=== PATIENT | male | born 1985 | race Caucasian/White ===

== ENCOUNTER 2016-11-07 15:55 | Emergency (ER) | payer OTHER ==
[~2016-11-07] VITALS: Ht 167.6 cm; Wt 61.8 kg
[~2016-11-07 15:55] MED LIST: ARIP2 PO; FLUO-191 PO
[2016-11-07] MEDS ORDERED: BACITRACIN 0.9 GM PACKET OINTMENT TP ONE (17:00)
[2016-11-07] MEDS ORDERED: CEFTAROLINE 600 MG/D5W 250 ML IV ONE (17:00)
[2016-11-07 18:09] VITALS: BP 137/88
== END 2016-11-07 18:13 | disposition home or self-care (01) ==
LOC: EMS 15:56
DX: L03.116 Cellulitis of left lower limb (principal); F12.90 Cannabis use, unspecified, uncomplicated; F17.210 Nicotine dependence, cigarettes, uncomplicated
CPT/HCPCS: 96365; 99284; J0712

== ENCOUNTER 2018-09-14 15:10 | Emergency (ER) | payer OTHER ==
[~2018-09-14] VITALS: Ht 185.4 cm; Wt 91.8 kg
[2018-09-14 15:23] VITALS: BP 134/86
[2018-09-14] MEDS ORDERED: LITH300C3 PO (15:26)
== END 2018-09-14 20:00 | disposition left against medical advice (07) ==
LOC: EMS 15:10
DX: M54.5 Low back pain (principal); Z53.21 Procedure and treatment not carried out due to patient leaving prior to being seen by health care provider

== ENCOUNTER 2019-02-03 16:11 | Emergency (ER) | payer OTHER ==
[~2019-02-03] VITALS: Ht 185.4 cm; Wt 92.3 kg
[~2019-02-03 16:11] MED LIST changes: +LITH300C3 PO
[2019-02-03] MEDS ORDERED: HALOPERIDOL LACTATE 5 MG/ML VIAL ONE ×2 (16:34→17:12)
[2019-02-03] MEDS ORDERED: LORazepam 2 MG/ML VIAL ONE (16:34)
[2019-02-03] MEDS ORDERED: DiphenhydrAMINE HCL 50 MG/ML VIAL ONE ×2 (16:34→17:12)
[2019-02-03 16:53] LABS: EOSINOPHILS % (AUTO) 0.4 % (1.0-6.0); HEMATOCRIT 43.6 % (41-53); HEMOGLOBIN 14.3 g/dL (13.5-17.5); LYMPHOCYTES # (AUTO) 1.9 K/uL (1.0-4.8); LYMPHOCYTES % (AUTO) 17.3 % (22.0-44.0); MEAN CORPUSCULAR HEMOGLOBIN 30.3 pg (26.0-34.0); MEAN CORPUSCULAR HGB CONC 32.9 G/dL (31.0-37.0); MEAN CORPUSCULAR VOLUME 92 fL (80-100); MONOCYTES # (AUTO) 1.5 K/uL (0.1-1.0); MONOCYTES % (AUTO) 13.4 % (2.0-9.0); NEUTROPHILS # (AUTO) 7.6 K/uL (1.8-7.7); NEUTROPHILS % (AUTO) 67.9 % (40.0-70.0); PLATELET COUNT (AUTO) 339 K/uL (150-450); RED BLOOD CELL COUNT(AUTO) 4.73 MIL/uL (4.50-5.90); RED CELL DISTRIBUTION WIDTH 13.5 % (11.5-14.5)
[2019-02-03] MEDS ORDERED: LORazepam 2 MG/ML VIAL IM ONE (17:00)
[2019-02-03 17:02] LABS: CALCIUM, TOTAL 8.9 mg/dL (8.8-10.5); CREATININE 1.55 mg/dL (0.60-1.30); POTASSIUM 3.8 mmol/L (3.5-5.1)
[2019-02-03 17:08] LABS: ALBUMIN 3.7 g/dL (3.4-5.0); BILIRUBIN,TOTAL 1.1 mg/dL (0.1-1.0); TOTAL PROTEIN, SERUM 7.8 g/dL (6.4-8.2)
[2019-02-03] MEDS ORDERED: DiphenhydrAMINE HCL 50 MG/ML VIAL IVP ONE (17:15)
[2019-02-03] MEDS ORDERED: HALOPERIDOL LACTATE 5 MG/ML VIAL IM ONE (17:15)
[2019-02-03 17:25] LABS: AMPHET/METH SCREEN,URINE POSITIVE (NEGATIVE); BARBITURATE SCREEN, URINE NEGATIVE (NEGATIVE); BENZODIAZEPINES SCREEN,URINE NEGATIVE (NEGATIVE); CANNABINOID SCREEN,URINE NEGATIVE (NEGATIVE); COCAINE SCREEN,URINE NEGATIVE (NEGATIVE); METHADONE SCREEN, URINE NEGATIVE (NEGATIVE); OPIATE SCREEN,URINE NEGATIVE (NEGATIVE)
[2019-02-03 17:26] LABS: PHENCYCLIDINE SCREEN,URINE NEGATIVE (NEGATIVE)
[2019-02-03] MEDS ORDERED: PERTUSS(ACELL),DIPH,TET VAC/PF 0.5 ML VIAL IM ONE (21:45)
[2019-02-03 22:17] VITALS: BP 136/77
== END 2019-02-03 22:33 | disposition home or self-care (01) ==
LOC: EMS 16:12
DX: S00.212A Abrasion of left eyelid and periocular area, initial encounter (principal); F29 Unspecified psychosis not due to a substance or known physiological condition; F22 Delusional disorders; F19.10 Other psychoactive substance abuse, uncomplicated; F31.9 Bipolar disorder, unspecified; F17.210 Nicotine dependence, cigarettes, uncomplicated; F12.90 Cannabis use, unspecified, uncomplicated; Y04.2XXA Assault by strike against or bumped into by another person, initial encounter; Y93.89 Activity, other specified; Y92.89 Other specified places as the place of occurrence of the external cause; Y99.8 Other external cause status
CPT/HCPCS: 36415; 70450; 70486; 72125; 80053; 80178; 80307; 85025; 90471; 90715; 96372; 99291; G0480; J1630; J2060; J1200

== ENCOUNTER 2019-02-26 17:11 | Emergency (ER) | payer OTHER ==
[~2019-02-26] VITALS: Ht 185.4 cm; Wt 93.2 kg
[2019-02-26 19:38] VITALS: BP 140/78
[2019-02-26 19:44] LABS: BASOPHILS % (AUTO) 0.7 % (0.0-2.0); EOSINOPHILS % (AUTO) 0.3 % (1.0-6.0); HEMATOCRIT 42.6 % (41-53); HEMOGLOBIN 14.1 g/dL (13.5-17.5); LYMPHOCYTES # (AUTO) 1.7 K/uL (1.0-4.8); LYMPHOCYTES % (AUTO) 16.6 % (22.0-44.0); MEAN CORPUSCULAR HEMOGLOBIN 30.7 pg (26.0-34.0); MEAN CORPUSCULAR HGB CONC 33.2 G/dL (31.0-37.0); MEAN CORPUSCULAR VOLUME 92 fL (80-100); MONOCYTES # (AUTO) 1.3 K/uL (0.1-1.0); MONOCYTES % (AUTO) 12.4 % (2.0-9.0); NEUTROPHILS # (AUTO) 7.3 K/uL (1.8-7.7); PLATELET COUNT (AUTO) 337 K/uL (150-450); RED BLOOD CELL COUNT(AUTO) 4.61 MIL/uL (4.50-5.90); RED CELL DISTRIBUTION WIDTH 13.8 % (11.5-14.5)
[2019-02-26] MEDS ORDERED: HYDROCODONE/ACETAMINOPHEN 5-325 MG TABLET PO ONE (19:45)
[2019-02-26] MEDS ORDERED: LIDOCAINE 1% 10 ML VIAL INJ ONE (19:45)
[2019-02-26 19:49] LABS: AMPHET/METH SCREEN,URINE POSITIVE (NEGATIVE); BARBITURATE SCREEN, URINE NEGATIVE (NEGATIVE); BENZODIAZEPINES SCREEN,URINE NEGATIVE (NEGATIVE); CANNABINOID SCREEN,URINE NEGATIVE (NEGATIVE); COCAINE SCREEN,URINE NEGATIVE (NEGATIVE); METHADONE SCREEN, URINE NEGATIVE (NEGATIVE); OPIATE SCREEN,URINE NEGATIVE (NEGATIVE)
[2019-02-26 19:50] LABS: PHENCYCLIDINE SCREEN,URINE NEGATIVE (NEGATIVE)
[2019-02-26 19:57] LABS: ANION GAP 12 mmol/L (8-16); CALCIUM, TOTAL 8.8 mg/dL (8.8-10.5); CARBON DIOXIDE 23 mmol/L (22-29); CHLORIDE 103 mmol/L (98-107); CREATININE 1.23 mg/dL (0.60-1.30); GLOMERULAR FILTR. RATE CALC > 60 mL/min (>60); GLUCOSE,RANDOM 81 mg/dL (70-110); SODIUM SERUM 138 mmol/L (136-145); UREA NITROGEN, BLOOD 14 mg/dL (7-18)
[2019-02-26 20:04] LABS: ALANINE AMINOTRANSFERASE 62 U/L (12-78); ALKALINE PHOSPHATASE 71 U/L (46-116); ASPARTATE AMINOTRANSFERASE 81 U/L (15-37); BILIRUBIN,TOTAL 1.2 mg/dL (0.1-1.0); TOTAL PROTEIN, SERUM 7.7 g/dL (6.4-8.2)
== END 2019-02-26 19:48 | disposition left against medical advice (07) ==
LOC: EMS 17:14
DX: S01.112A Laceration without foreign body of left eyelid and periocular area, initial encounter (principal); F15.10 Other stimulant abuse, uncomplicated; F31.9 Bipolar disorder, unspecified; E11.9 Type 2 diabetes mellitus without complications; F17.210 Nicotine dependence, cigarettes, uncomplicated; F12.90 Cannabis use, unspecified, uncomplicated; Y04.0XXA Assault by unarmed brawl or fight, initial encounter; Y93.89 Activity, other specified; Y92.89 Other specified places as the place of occurrence of the external cause; Y99.8 Other external cause status
CPT/HCPCS: 36415; 80053; 80307; 85025; 99285; G0480

== ENCOUNTER 2021-01-11 16:19 | Emergency (ER) | payer MEDICAID, OTHER ==
[~2021-01-11] VITALS: Ht 185.4 cm; Wt 104.5 kg
[~2021-01-11 16:19] MED LIST changes: -ARIP2 PO; +ARIP2TAB27 PO
[2021-01-11 16:30] VITALS: BP 125/94
[2021-01-11] MEDS ORDERED: OLAN2.5T29 PO (16:37)
[2021-01-11] MEDS ORDERED: SULFAMETHOX/TRIMETH DS 800-160 MG/TABLET PO ONE (17:45)
[2021-01-11] MEDS ORDERED: CEPHALEXIN MONOHYDRATE 500 MG CAPSULE PO ONE (17:45)
[2021-01-11] MEDS ORDERED: IBUPROFEN 800 MG TABLET PO ONE (17:45)
[2021-01-11] MEDS ORDERED: BACITRACIN 0.9 GM PACKET OINTMENT TP ONE (18:15)
[2021-01-11] MEDS ORDERED: PERTUSS(ACELL),DIPH,TET VAC/PF 0.5 ML SYRINGE IM. ONE (18:30)
== END 2021-01-11 18:44 | disposition home or self-care (01) ==
LOC: EMS 16:21
DX: S81.802A Unspecified open wound, left lower leg, initial encounter (principal); L03.116 Cellulitis of left lower limb; L02.416 Cutaneous abscess of left lower limb; F31.9 Bipolar disorder, unspecified; F20.9 Schizophrenia, unspecified; F17.210 Nicotine dependence, cigarettes, uncomplicated; F12.90 Cannabis use, unspecified, uncomplicated; X58.XXXA Exposure to other specified factors, initial encounter; Y93.89 Activity, other specified; Y92.89 Other specified places as the place of occurrence of the external cause; Y99.8 Other external cause status
CPT/HCPCS: 90471; 90715; 99284; 99406

== ENCOUNTER 2023-06-18 02:53 | Emergency (ER) | payer OTHER ==
[~2023-06-18 02:53] MED LIST changes: -ARIP2TAB27 PO; -FLUO-191 PO; -LITH300C3 PO; +OLAN2.5T29 PO
[2023-06-18] MEDS ORDERED: DiphenhydrAMINE HCL 50 MG/ML VIAL IM ONE (04:00)
[2023-06-18] MEDS ORDERED: LORazepam 2 MG/ML VIAL IM ONE (04:00)
[2023-06-18] MEDS ORDERED: HALOPERIDOL LACTATE 5 MG/ML VIAL IM ONE (04:00)
[2023-06-18] MEDS ORDERED: ZOLPIDEM TARTRATE 10 MG TABLET PO PRN (04:15)
[2023-06-18] MEDS ORDERED: LORazepam 2 MG TABLET PO PRN (04:15)
[2023-06-18] MEDS ORDERED: HALOPERIDOL 5 MG TABLET PO PRN (04:15)
== END 2023-06-18 06:51 | disposition left against medical advice (07) ==
LOC: EMS 02:54
DX: R45.851 Suicidal ideations (principal); R44.1 Visual hallucinations; Z53.21 Procedure and treatment not carried out due to patient leaving prior to being seen by health care provider
CPT/HCPCS: 99281; J1200; J1630; J2060

== ENCOUNTER 2024-07-08 12:02 | Emergency (ER) | payer SELFPAY ==
[~2024-07-08] VITALS: Ht 185.4 cm; Wt 86.4 kg
[~2024-07-08 12:02] MED LIST changes: -OLAN2.5T29 PO; +OLAN2.5T78 PO
[2024-07-08 12:07] VITALS: BP 113/60; PULSE 104; RESP 18; TEMP 98.3; O2SAT 98
== END 2024-07-08 13:00 | disposition left against medical advice (07) ==
LOC: EMS 12:02
DX: M25.561 Pain in right knee (principal); Z53.21 Procedure and treatment not carried out due to patient leaving prior to being seen by health care provider